=== PATIENT | female | born 1950 | race Caucasian/White ===

== ENCOUNTER 2018-08-19 11:35 | Emergency (ER) | payer MEDICARE ==
[~2018-08-19] VITALS: Ht 154.9 cm; Wt 56.7 kg
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
--- NOTE | 2018-08-19 13:37 | NUR ---
Patient discharged to home in stable condition. Written and verbal after care instructions given. Patient verbalizes understanding of instruction.
[2018-08-19 13:38] VITALS: BP 153/99
== END 2018-08-19 14:13 | disposition home or self-care (01) ==
LOC: ER 11:36
DX: S09.8XXA Other specified injuries of head, initial encounter (principal); F41.9 Anxiety disorder, unspecified; E07.9 Disorder of thyroid, unspecified; W22.8XXA Striking against or struck by other objects, initial encounter; Y93.89 Activity, other specified; Y92.89 Other specified places as the place of occurrence of the external cause; Y99.8 Other external cause status
CPT/HCPCS: 70450-TC

== ENCOUNTER 2019-02-22 12:16 | Emergency (ER) | payer MEDICARE ==
[~2019-02-22] VITALS: Ht 154.9 cm; Wt 59.0 kg
[2019-02-22 12:24] VITALS: BP 149/113
== END 2019-02-22 12:53 | disposition home or self-care (01) ==
LOC: ER 12:24
DX: S80.262A Insect bite (nonvenomous), left knee, initial encounter (principal); R21 Rash and other nonspecific skin eruption; M25.562 Pain in left knee; G89.29 Other chronic pain; F41.9 Anxiety disorder, unspecified; W57.XXXA Bitten or stung by nonvenomous insect and other nonvenomous arthropods, initial encounter; Y93.89 Activity, other specified; Y92.89 Other specified places as the place of occurrence of the external cause; Y99.8 Other external cause status

== ENCOUNTER 2019-06-19 18:22 | Emergency (ER) | payer MEDICARE ==
[~2019-06-19] VITALS: Ht 149.9 cm; Wt 63.5 kg
[2019-06-19] MEDS ORDERED: ONDANSETRON HCL/PF 4 MG/2 ML VIAL IVP ONE (18:30)
--- NOTE | 2019-06-19 18:30 | NUR ---
SEEN AND EXAMINED BY .
--- NOTE | 2019-06-19 18:30 | NUR ---
PT BIBA RA 86 From Home"Severe Anxiety/Nausea. PT IS AAOX4, NOT IN RESPIRATORY DISTRESS, HOOKED TO MONITOR, KEPT RESTED AND COMFORTABLE, WILL CONTINUE TO MONITOR.
--- NOTE | 2019-06-19 18:40 | NUR ---
IV LINE ESTABLISHED, BLOOD DRAWN AND SENT TO LAB.
--- NOTE | 2019-06-19 18:45 | NUR ---
URINE SPECIMEN COLLECTED AND SENT TO LAB.
[2019-06-19 18:50] LABS: BASOPHILS % (AUTO) 0.6 % (0.0-2.0); EOSINOPHILS % (AUTO) 0.7 % (0.0-6.0); HEMATOCRIT 37 % (33-45); HEMOGLOBIN 12.4 g/dL (11.5-14.8); LYMPHOCYTES % (AUTO) 12.1 % (20.0-44.0); MEAN CORPUSCULAR HGB CONC 33 g/dl (31.0-36.0); MEAN CORPUSCULAR VOLUME 93 fL (82-100); MONOCYTES # (AUTO) 0.4 /CMM (0.1-1.30); NEUTROPHILS # (AUTO) 6.5 /CMM (1.8-8.9); NEUTROPHILS % (AUTO) 81.6 % (43.0-81.0); PLATELET COUNT (AUTO) 218 /CMM (150-450); RED BLOOD CELL COUNT(AUTO) 4.02 MIL/uL (4.0-5.2); WHITE BLOOD COUNT (AUTO) 7.9 K/uL (4.3-11.0)
[2019-06-19 18:51] LABS: APPEARANCE,URINE Clear (CLEAR); BILIRUBIN,URINE Negative (NEGATIVE); BLOOD, URINE Trace-lysed Ery/uL (NEGATIVE); COLOR,URINE Yellow (YELLOW); KETONES,URINE 40 (NEGATIVE); LEUKOCYTE ESTERASE ,URINE Small (NEGATIVE); NITRITE, URINE Negative (NEGATIVE); PH,URINE 6.5 (5.0-8.0); PROTEIN,URINE Negative (NEGATIVE); UGLUCOSE Negative (NEGATIVE); UROBILINOGEN,URINE 0.2 EU/dL (0.2)
[2019-06-19] MEDS ORDERED: ALPRAZOLAM 0.5 MG TABLET ONE (18:53)
[2019-06-19] MEDS ORDERED: ONDANSETRON HCL/PF 4 MG/2 ML VIAL ONE (18:53)
[2019-06-19 18:56] LABS: BACTERIA,URINE Few /HPF (None Seen); MUCUS,URINE Few /LPF (None Seen); SQUAMOUS EPITHELIAL CELL,UR Few /HPF (None Seen)
[2019-06-19 18:57] LABS: CALCIUM, SERUM 9.9 mg/dL (8.5-10.1); CREATININE 0.9 mg/dL (0.6-1.3); POTASSIUM 3.9 mmol/L (3.5-5.1)
[2019-06-19] MEDS ORDERED: ALPRAZOLAM 0.5 MG TABLET PO ONE (19:00)
[2019-06-19 19:02] LABS: ALBUMIN 4.3 g/dL (3.4-5.0); BILIRUBIN,DIRECT 0.1 mg/dL (0.0-0.2); BILIRUBIN,TOTAL 0.5 mg/dL (0.2-1.0); TOTAL PROTEIN, SERUM 7.8 g/dL (6.4-8.2)
--- NOTE | 2019-06-19 19:04 | NUR ---
LICENSED FINAL EXPENSE AGENTS AT BEDSIDE FOR XRAY.
--- NOTE | 2019-06-19 19:15 | NUR ---
REPORT GIVEN TO BINA BASURTO FOR ANNABELLA.
--- NOTE | 2019-06-19 19:18 | NUR ---
Patient discharged to home in stable condition. Written and verbal after care instructions given. Patient verbalizes understanding of instruction.
[2019-06-19 20:11] VITALS: BP 128/83
== END 2019-06-19 20:11 | disposition home or self-care (01) ==
LOC: ER 18:26
DX: F41.9 Anxiety disorder, unspecified (principal); R11.2 Nausea with vomiting, unspecified; E07.9 Disorder of thyroid, unspecified; Z60.2 Problems related to living alone
CPT/HCPCS: 36415; 71045; 80048; 80076; 81001; 85025; 87086; 96374; 99284; J2405; 81000-TC

== ENCOUNTER 2019-06-20 08:17 | Emergency (ER) | payer MEDICARE ==
[~2019-06-20] VITALS: Ht 152.4 cm; Wt 54.0 kg
[2019-06-20 08:19] VITALS: BP 127/75
--- NOTE | 2019-06-20 08:30 | NUR ---
SEEN AND EXAMINED BY
--- NOTE | 2019-06-20 08:43 | NUR ---
Patient discharged to home in stable condition. Written and verbal after care instructions given. Patient verbalizes understanding of instruction.
== END 2019-06-20 08:44 | disposition home or self-care (01) ==
LOC: ER 08:17
DX: F41.9 Anxiety disorder, unspecified (principal); E07.9 Disorder of thyroid, unspecified; Z60.2 Problems related to living alone

== ENCOUNTER 2019-07-03 22:04 | Emergency (ER) | payer MEDICARE ==
[~2019-07-03] VITALS: Ht 154.9 cm; Wt 54.4 kg
--- NOTE | 2019-07-03 22:24 | NUR ---
PT BIBA C/O NAUSEA, VOMITING SINCE 8 PM TODAY. PT ENDORSES ON AND OFF ABDOMINAL PAIN X 2 WEEKS. NO PAIN AT THIS PAIN. PT AAOX4, VSS, BREATHING EVEN AND UNLABORED ON ROOM AIR W/ NAD NOTED. PT CONNECTED TO THE MONITOR
[2019-07-03] MEDS ORDERED: CT SWABBABLE VALVE TRANS SET 1 EA INFUS.SET MC ONE (22:39)
[2019-07-03] MEDS ORDERED: IOHEXOL-300 100 ML VIAL IV ONE (22:39)
[2019-07-03] MEDS ORDERED: IV NS 0.9% 250 ML IV ONE (22:39)
[2019-07-03] MEDS ORDERED: ONDANSETRON HCL/PF 4 MG/2 ML VIAL ONE (22:40)
[2019-07-03] MEDS ORDERED: LORAZEPAM INJ 2 MG/ML VIAL ONE (22:43)
[2019-07-03] MEDS ORDERED: IV NS 0.9% 1,000 ML BAG IV ONE (23:00)
[2019-07-03] MEDS ORDERED: ONDANSETRON HCL/PF 4 MG/2 ML VIAL IVP ONE (23:00)
[2019-07-03] MEDS ORDERED: LORAZEPAM INJ 2 MG/ML VIAL IV ONE (23:00)
[2019-07-03 23:13] LABS: BASOPHILS % (AUTO) 0.5 % (0.0-2.0); EOSINOPHILS % (AUTO) 0.6 % (0.0-6.0); HEMATOCRIT 37 % (33-45); HEMOGLOBIN 12.4 g/dL (11.5-14.8); LYMPHOCYTES % (AUTO) 14.4 % (20.0-44.0); MEAN CORPUSCULAR HGB CONC 33 g/dl (31.0-36.0); MEAN CORPUSCULAR VOLUME 93 fL (82-100); MONOCYTES # (AUTO) 0.4 /CMM (0.1-1.30); MONOCYTES % (AUTO) 5.4 % (2.0-12.0); NEUTROPHILS # (AUTO) 5.7 /CMM (1.8-8.9); NEUTROPHILS % (AUTO) 79.1 % (43.0-81.0); PLATELET COUNT (AUTO) 205 /CMM (150-450); WHITE BLOOD COUNT (AUTO) 7.3 K/uL (4.3-11.0)
--- NOTE | 2019-07-03 23:20 | NUR ---
URINE COLLECTED AMD SENT TO LAB
[2019-07-03 23:30] LABS: APPEARANCE,URINE CLEAR (CLEAR); BILIRUBIN,URINE NEGATIVE (NEGATIVE); BLOOD, URINE NEGATIVE Ery/uL (NEGATIVE); COLOR,URINE YELLOW (YELLOW); KETONES,URINE TRACE (NEGATIVE); LEUKOCYTE ESTERASE ,URINE TRACE (NEGATIVE); NITRITE, URINE NEGATIVE (NEGATIVE); PH,URINE 7.5 (5.0-8.0); PROTEIN,URINE NEGATIVE (NEGATIVE); UGLUCOSE NEGATIVE (NEGATIVE); UROBILINOGEN,URINE 0.2 EU/dL (0.2)
[2019-07-04 00:14] LABS: BACTERIA,URINE None seen /HPF (None Seen); SQUAMOUS EPITHELIAL CELL,UR Few /HPF (None Seen)
[2019-07-04 01:18] LABS: ALBUMIN 4.1 g/dL (3.4-5.0); BILIRUBIN,DIRECT 0.1 mg/dL (0.0-0.2); BILIRUBIN,TOTAL 0.4 mg/dL (0.2-1.0); CALCIUM, SERUM 9.8 mg/dL (8.5-10.1); CREATININE 0.8 mg/dL (0.6-1.3); POTASSIUM 4.3 mmol/L (3.5-5.1); TOTAL PROTEIN, SERUM 7.9 g/dL (6.4-8.2)
--- NOTE | 2019-07-04 01:48 | NUR ---
PT RETURNED FROM CT
--- NOTE | 2019-07-04 03:25 | NUR ---
PT IN BED SLEEPING. NO DISTRESS NOTED
[2019-07-04] MEDS ORDERED: MAGNESIUM CITRATE 296 ML BOTTLE PO ONE (03:30)
[2019-07-04] MEDS ORDERED: MAGNESIUM CITRATE 296 ML BOTTLE ONE (03:47)
[2019-07-04 04:09] VITALS: BP 131/88
== END 2019-07-04 04:09 | disposition home or self-care (01) ==
LOC: ER 22:05
DX: N39.0 Urinary tract infection, site not specified (principal); K59.00 Constipation, unspecified; R11.2 Nausea with vomiting, unspecified; F41.9 Anxiety disorder, unspecified; R07.89 Other chest pain; Z60.2 Problems related to living alone
CPT/HCPCS: 36415; 74177; 80048; 80076; 81001; 83690; 85025; 87086; 96361; 96374; 96375; 99284; J2060; J2405; J7030; J7050; Q9967; 81000-TC

== ENCOUNTER 2019-10-10 11:53 | Emergency (ER) | payer MEDICARE ==
[~2019-10-10] VITALS: Ht 154.9 cm; Wt 55.3 kg
== END 2019-10-10 12:57 | disposition home or self-care (01) ==
LOC: ER 11:55
DX: F41.9 Anxiety disorder, unspecified (principal); E06.3 Autoimmune thyroiditis